=== PATIENT | male | born 1940 | race Caucasian/White ===

== ENCOUNTER 2017-02-26 13:12 | Emergency (ER) | payer MEDICARE ==
[~2017-02-26 13:12] MED LIST: Iopamidol 370 76% 100 ML VIAL ONE; Sodium Chloride 0.9% 1,000 ML BAG ONE; Sodium Chloride 0.9% 100 ML BAG ONE
[2017-02-26] MEDS ORDERED: Cefepime 1 GM VIAL ONE (14:24)
[2017-02-26] MEDS ORDERED: Acetaminophen 500 MG TAB ONE (14:24)
--- NOTE | 2017-02-26 14:25 | RAD ---
FRONTAL RADIOGRAPH CHEST PORTABLE UPRIGHT: Date: 02-26-17 Comparison: 12-21-10 History: Fever FINDINGS: There is no pneumothorax, pleural fluid, focal consolidation or alveolar edema. Heart and mediastina l contours are unremarkable. Midline sternotomy wires are present. There is a post-operative anchor overlying the left humeral head. IMPRESSION: No focal consolidation or alveolar edema. POS: [facility]
[2017-02-26 14:33] LABS: Hemoglobin 13.9 g/dL (14.0-18.0); Mean Corpuscular Hemoglobin 31.2 pg (27.0-31.0); Mean Corpuscular Volume 94.4 fL (80.0-94.0); Mean Platelet Volume 8.1 fL (7.4-10.4); Platelet Count 197 thou/uL (130-400); RBC Distribution Width 12.4 % (11.5-14.5); Red Blood Cell (RBC) Count 4.47 mill/uL (4.70-6.10); White Blood Cell (WBC) Count 0.7 thou/uL (4.8-10.8)
[2017-02-26 14:34] LABS: MDiff Complete? YES; Manual Diff?? YES
[2017-02-26 14:37] LABS: Anion Gap 15 mmol/L (10-20); BUN (Urea Nitrogen) 19 mg/dL (8.4-25.7); Calc. Creatinine Clearance 0 mL/min (70-130); Calcium 9.9 mg/dL (7.8-10.44); Carbon Dioxide 25 mmol/L (23-31); Chloride 99 mmol/L (98-107); Estimated GFR-MDRD 74; Glucose 131 mg/dL (83-110); Potassium 3.7 mmol/L (3.5-5.1); Sodium 135 mmol/L (136-145)
[2017-02-26 14:39] LABS: Bilirubin Negative (Negative); Blood, Urine Negative (Negative); Clarity Clear (Clear); Glucose, Urine (Dipstick) Negative (Negative); Leukocyte Negative (Negative); Nitrite Negative (Negative); Protein, Urine (Dipstick) Negative (Neg-Trace); pH, Urine 5.5 (5.0-9.0)
[2017-02-26 14:41] LABS: CKMB 0.5 ng/mL (0-6.6); Troponin I 0.054 ng/mL (< 0.028)
[2017-02-26 15:03] LABS: Anisocytosis SLIGHT = 6-15 cells (100X) (0-5/hpf); Band 8 % (5-11); Lymphocytes 20 % (21-51); Monocytes 60 % (0-10); Neutrophil 8 % (42-75); PLT Morphology Comment Appears Adequate; Poikilocytosis SLIGHT = 6-15 cells (100X) (0-5/hpf); Reactive Lymphocytes 4 % (0-10)
--- NOTE | 2017-02-26 15:57 | CT ---
CT ABDOMEN AND PELVIS WITH IV CONTRAST: Date: 02/26/17 HISTORY: Bladder cancer. Abdominal pain. Diffuse large B-cell lymphoma. FINDINGS: Correlation made with PET CT of 05/07/16. There are mild dependent changes in the lung bases. Low densities in the liver, likely cysts, are ag ain seen. The spleen, pancreas, adrenal glands, and kidneys are normal. No calcified gallstones are identified. No free air or free fluid is seen in the abdomen or pelvis. There has been interval reduction in siz e of the extensive retroperitoneal lymphadenopathy since the PET CT, currently measuring 4.0 cm in l argest AP dimension compared to 7.2 cm on the PET CT. Focal calcifications in the mesentery are agai n seen. There are vascular calcifications without evidence of aneurysmal dilatation of the abdominal aorta. There are degenerative changes in the spine. There is colonic diverticulosis without evidenc e of diverticulitis. A small hiatal hernia is present. IMPRESSION: 1. Residual retroperitoneal lymphadenopathy since PET CT of 05/07/16. Further evaluation with PET s can would be helpful to evaluate for viable tumor. 2. Liver cysts. 3. Colonic diverticulosis. 4. Small hiatal hernia. POS: [facility]
== END 2017-02-26 18:55 | disposition short-term general hospital (02) ==
LOC: MADERS 13:12
DX: A41.9 Sepsis, unspecified organism (principal); D72.829 Elevated white blood cell count, unspecified; E11.9 Type 2 diabetes mellitus without complications; K21.9 Gastro-esophageal reflux disease without esophagitis; E78.5 Hyperlipidemia, unspecified; I10 Essential (primary) hypertension; Z79.82 Long term (current) use of aspirin; Z79.899 Other long term (current) drug therapy
CPT/HCPCS: 36415; 71010; 74177; 80048; 81003; 82553; 83605; 84484; 85025; 85060; 87040; 87086; 93005; 96361; 96365; 96367; J0692; J3370; J7050